=== PATIENT | male | born 1985 | race Two or more races ===

== ENCOUNTER 2020-02-14 02:29 | Inpatient (IN) | payer SELFPAY ==
[~2020-02-14] VITALS: Ht 167.6 cm; Wt 66.7 kg
[2020-02-14] MEDS ORDERED: SODIUM CHLORIDE 0.9% 1,000 ML IV ONE (02:58)
[2020-02-14] MEDS ORDERED: ONDANSETRON ODT 4 MG TAB PO ONE (03:00)
[2020-02-14] MEDS ORDERED: InsuLIN REG 1unit/0.01ml Soln (100units/ml) IV ONE (03:15)
[2020-02-14] MEDS ORDERED: ONDANSETRON HCL 4 MG/2 ML VIAL IV ONE (03:30)
[2020-02-14 03:46] LABS: Basophils # (auto) 0 10 ^3/uL (0-0.2); Basophils % (auto) 0.2 % (0.0-2.0); Eosinophils # (auto) 0 10 ^3/uL (0-0.8); Hemoglobin 16.3 g/dL (13.5-17.5); Lymphocytes # (auto) 0.8 10 ^3/uL (0.4-5.4); Lymphocytes % (auto) 7.8 % (10.0-50.0); Mean Corpuscular Hemoglobin 30.2 pg (28.0-32.0); Mean Corpuscular Hgb Conc. 32.5 g/dL (32.0-36.0); Mean Corpuscular Volume 92.9 fL (80.0-100.0); Monocytes # (auto) 0.5 10 ^3/uL (0-1.3); Monocytes % (auto) 4.5 % (0.0-12.0); Neutrophils # (auto) 8.8 10 ^3/uL (1.6-8.6); Neutrophils % (auto) 87.5 % (37.0-80.0); Platelet Count (auto) 344 10^3/uL (140-450); Red Blood Cells 5.38 10^6/uL (4.5-5.90); White Blood Cell 10.1 10^3/uL (4.4-10.8)
[2020-02-14 03:57] LABS: Alanine Aminotransferase 47 U/L (16-61); Aspartate Aminotransferase 37 U/L (15-37); GFR African American 78 mL/min; GFR Non-African American 65 mL/min
[2020-02-14 04:02] LABS: Glucose 589 mg/dL (74-106)
[2020-02-14 04:04] LABS: INR 1.01 (0.9-1.15); Partial Thromboplastin Time 22.8 sec (23.64-32.05)
[2020-02-14 04:17] LABS: Albumin 4.4 g/dL (3.4-5.0); Alkaline Phosphatase 105 U/L (45-117); Anion Gap 25 (5-15); BUN/Creatinine Ratio 15.7; Blood Urea Nitrogen 21 mg/dL (7-18); Calcium 9.6 mg/dL (8.5-10.1); Carbon Dioxide 11 mmol/L (21-32); Chloride 95 mmol/L (98-107); Magnesium 2.8 mg/dL (1.6-2.6); Potassium 4.6 mmol/L (3.5-5.1); Sodium 131 mmol/L (136-145)
[2020-02-14 04:23] LABS: Urine Bacteria NONE SEEN /hpf (None Seen); Urine Blood Negative /uL (Negative); Urine Specific Gravity 1.028 (1.001-1.035); Urine WBC <1 /hpf (0 - 3)
[2020-02-14] MEDS ORDERED: InsuLIN R (HUMAN) 100 UNITS in SODIUM CHL 0.9% 99 ML IV SCH (04:24)
[2020-02-14] MEDS: SODIUM CHLORIDE 0.9% 2,000 ML IV SCH ×2 (04:25→06:24)
[2020-02-14] MEDS ORDERED: DEXTROSE (50%) 50ML SYRG IV PRN ×3 (04:30→14:15)
[2020-02-14] MEDS ORDERED: SODIUM BICARBONATE 8.4 % INJ 50ML VIAL IV ONE (04:30)
[2020-02-14] MEDS ORDERED: InsuLIN REG 1unit/0.01ml Soln (100units/ml) ONE ×2 (04:44→04:51)
[2020-02-14] MEDS ORDERED: ONDANSETRON HCL 4 MG/2 ML VIAL IV PRN (05:00)
[2020-02-14] MEDS ORDERED: INSULIN LANTUS (GLARGINE) 1 /0.01ml (100units/ml) SC ONE (05:00)
[2020-02-14] MEDS ORDERED: DOCUSATE SOD 100 MG CAP PO PRN (05:00)
[2020-02-14] MEDS ORDERED: ACETAMINOPHEN 325 MG TAB PO PRN (05:00)
[2020-02-14] MEDS: ACCU-CHEK COMFORT CURVE STRIP VI SCH ×10 (05:17→21:36)
[2020-02-14 06:06] LABS: Basophils # (auto) 0 10 ^3/uL (0-0.2); Basophils % (auto) 0.3 % (0.0-2.0); Eosinophils # (auto) 0 10 ^3/uL (0-0.8); Hematocrit 40.5 % (41.0-53.0); Hemoglobin 13.1 g/dL (13.5-17.5); Lymphocytes # (auto) 0.7 10 ^3/uL (0.4-5.4); Mean Corpuscular Hemoglobin 29.2 pg (28.0-32.0); Mean Corpuscular Hgb Conc. 32.4 g/dL (32.0-36.0); Monocytes # (auto) 0.6 10 ^3/uL (0-1.3); Monocytes % (auto) 5.8 % (0.0-12.0); Neutrophils # (auto) 9.7 10 ^3/uL (1.6-8.6); Neutrophils % (auto) 87.9 % (37.0-80.0); Platelet Count (auto) 279 10^3/uL (140-450); Red Cell Distribution Width 13.6 % (11.8-14.3)
[2020-02-14 06:26] LABS: Calcium 7.5 mg/dL (8.5-10.1); Potassium 3.9 mmol/L (3.5-5.1)
[2020-02-14] MEDS: SODIUM CHLORIDE 0.9% 1,000 ML IV SCH ×4 (06:29→17:50)
[2020-02-14] MEDS: InsuLIN R (HUMAN) 100 UNITS in SODIUM CHL 0.9% 99 ML IV SCH ×3 (07:48→12:06)
[2020-02-14] MEDS ORDERED: SODIUM CHLORIDE 0.9% 1,000 ML IV SCH ×3 (08:24→10:24)
[2020-02-14 08:39] LABS: Magnesium 2.3 mg/dL (1.6-2.6); Phosphorus 1.6 mg/dL (2.5-4.90)
[2020-02-14 12:18] LABS: Potassium 3.4 mmol/L (3.5-5.1)
[2020-02-14 12:20] LABS: BUN/Creatinine Ratio 15.5
[2020-02-14] MEDS ORDERED: POTASSIUM CHLORIDE 8 MEQ TAB PO ONE (14:15)
[2020-02-14] MEDS ORDERED: InsuLIN REG 1unit/0.01ml Soln (100units/ml) SC ONE (14:15)
--- NOTE | 2020-02-14 16:50 | NUR ---
Telemetry admit from ER SAMIR DE LA FUENTE admitted to Telemetry unit after SBAR received from Mario KURTZ in ER. Patient is A & O x4, no s/s of distress. Patient oriented to Stacey Gray, primary RN, unit, room, bed, and unit policies regarding patient care and visiting hours. Patient now on continuous telemetry monitoring, tele box # 4 and telemetry reading on arrival to unit is SR at 65. Patient vital signs 116/73, HR 75, RR 16, O2 100% on RA, T 98.4. Patient encouraged to call if they need something. All questions and concerns addressed, patient verbalized understanding. Bed is in lowest, locked position, call light within reach. Will continue to monitor Q1h and PRN.
[2020-02-14] MEDS: InsuLIN REG 1unit/0.01ml Soln (100units/ml) SC SCH ×2 (17:37→21:53)
--- NOTE | 2020-02-14 18:05 | NUR ---
Spoke to Hospitalist, Nathan Doherty Patient reporting 9/10 headache. Orders received, read back, and verified. Will medicate per orders. Patient given an Ice pack to the back of the head for the mean time, patient reports that tylenol did not work for him.
[2020-02-14 19:33] LABS: Calcium 7.2 mg/dL (8.5-10.1); Potassium 3.5 mmol/L (3.5-5.1)
[2020-02-14] MEDS: traMADol HCL 50 MG TAB PO PRN (19:33)
--- NOTE | 2020-02-14 19:50 | NUR ---
open note assumed care of pt. upon entering room pt awake, alert and oriented x4. pt on room air no distress noted or expressed. pt updated on plan of care. bed locked, low and 2x rails up. call light in reach, this nurse to round q1hr and prn. pt report headache, this nurse to medicate per MD and MAR. this nurse to round q1hr and prn. encouraged pt to call as needed
[2020-02-14] MEDS: INSULIN LANTUS (GLARGINE) 1 /0.01ml (100units/ml) SC SCH (21:52)
[2020-02-14 22:00] VITALS: BP 116/72
[2020-02-15 00:14] LABS: BUN/Creatinine Ratio 11.6; Calcium 7.2 mg/dL (8.5-10.1); Potassium 3.1 mmol/L (3.5-5.1)
[2020-02-15 05:00] VITALS: BP 110/76
[2020-02-15 05:47] LABS: Basophils # (auto) 0 10 ^3/uL (0-0.2); Basophils % (auto) 0.3 % (0.0-2.0); Eosinophils # (auto) 0 10 ^3/uL (0-0.8); Eosinophils % (auto) 0.2 % (0.0-7.0); Hematocrit 35.3 % (41.0-53.0); Hemoglobin 11.9 g/dL (13.5-17.5); Lymphocytes # (auto) 1.9 10 ^3/uL (0.4-5.4); Lymphocytes % (auto) 24.5 % (10.0-50.0); Mean Corpuscular Hemoglobin 29.7 pg (28.0-32.0); Mean Corpuscular Hgb Conc. 33.8 g/dL (32.0-36.0); Mean Corpuscular Volume 87.8 fL (80.0-100.0); Monocytes # (auto) 0.7 10 ^3/uL (0-1.3); Neutrophils # (auto) 5.1 10 ^3/uL (1.6-8.6); Nucleated Red Blood Cells % 0.1 %; Platelet Count (auto) 196 10^3/uL (140-450); Red Blood Cells 4.02 10^6/uL (4.5-5.90); Red Cell Distribution Width 13.1 % (11.8-14.3); White Blood Cell 7.7 10^3/uL (4.4-10.8)
[2020-02-15] MEDS: SODIUM CHLORIDE 0.9% 1,000 ML IV SCH ×3 (05:52→11:36)
[2020-02-15 06:01] LABS: Potassium 3.1 mmol/L (3.5-5.1)
[2020-02-15 06:07] LABS: BUN/Creatinine Ratio 13.6; Calcium 7.2 mg/dL (8.5-10.1)
[2020-02-15] MEDS: ACCU-CHEK COMFORT CURVE STRIP VI SCH ×4 (06:19→22:07)
[2020-02-15] MEDS: InsuLIN REG 1unit/0.01ml Soln (100units/ml) SC SCH ×4 (06:42→22:11)
[2020-02-15 09:00] VITALS: BP 111/75
[2020-02-15] MEDS: traMADol HCL 50 MG TAB PO PRN ×2 (09:09→20:21)
--- NOTE | 2020-02-15 09:09 | NUR ---
MEDICATED WITH NORCO 05/30 FOR HEADACHE.
[2020-02-15] MEDS: INSULIN LANTUS (GLARGINE) 1 /0.01ml (100units/ml) SC SCH (09:45)
[2020-02-15] MEDS ORDERED: INSULIN LANTUS (GLARGINE) 1 /0.01ml (100units/ml) SC SCH ×2 (10:00→22:00)
[2020-02-15 13:00] VITALS: BP 112/79
[2020-02-15] MEDS ORDERED: POTASSIUM CHL 20 Meq TABLET PO ONE (13:15)
[2020-02-15 17:00] VITALS: BP 110/57
--- NOTE | 2020-02-15 20:03 | NUR ---
Opening Shift Note Assumed care of patient, awake and alert. No S/S of distress/SOB. Patient complains of 8/10 headache. POC discussed and questions answered. Bed is locked in lowest position with side rails up x2 for safety, call light is within reach and patient encouraged to call for assistance as needed. Will continue to monitor for changes Q1hr and PRN.
--- NOTE | 2020-02-15 20:22 | NUR ---
Patient complains of 8/10 headache, medicated with Ultram. Will continue to monitor.
[2020-02-15] MEDS ORDERED: INSLISPI SC (20:32)
[2020-02-15 22:52] VITALS: BP 116/77
[2020-02-16] MEDS: SODIUM CHLORIDE 0.9% 1,000 ML IV SCH (01:14)
[2020-02-16 05:11] VITALS: BP 123/83
[2020-02-16] MEDS: ACCU-CHEK COMFORT CURVE STRIP VI SCH ×2 (06:17→11:32)
[2020-02-16 06:21] LABS: Calcium 7.9 mg/dL (8.5-10.1); Potassium 3.2 mmol/L (3.5-5.1)
[2020-02-16 06:25] LABS: BUN/Creatinine Ratio 9.6
[2020-02-16] MEDS: InsuLIN REG 1unit/0.01ml Soln (100units/ml) SC SCH ×2 (06:26→11:40)
--- NOTE | 2020-02-16 07:35 | NUR ---
OPENING SHIFT NOTE: PATIENT RESTING IN BED ASLEEP EASILY AWOKEN. A/OX4 RESPIRATIONS EVEN AND UNLABORED. PATIENT UPDATED ON PLAN OF CARE, CALL LIGHT PLACED WITHIN REACH. FALL PRECAUTIONS IN PLACE. WILL CONTINUE TO MONITOR.
[2020-02-16 09:00] VITALS: BP 104/72
[2020-02-16] MEDS ORDERED: POTASSIUM CHL 20 Meq TABLET PO ONE (10:30)
--- NOTE | 2020-02-16 12:19 | NUR ---
PATIENT GIVEN ALL EDUCATION MATERIALS REGARDING FINDING A PRIMARY CARE DOCTOR AND WHERE TO GO UPON DISCHARGE FOR HEALTHCARE NEEDS. CASE MANAGEMENT ASSISTED WITH [employer] AND PATIENT MADE AWARE OF PENDING APPROVAL STATUS.
[2020-02-16] MEDS ORDERED: ATOR20TA PO (12:43)
[2020-02-16 13:00] VITALS: BP 113/80
--- NOTE | 2020-02-16 14:04 | NUR ---
DISCHARGE: PATIENT DISCHARGED WITH ALL BELONGINGS, ALL EDUCATION MATERIALS GIVEN AND REVIEWED WITH PATIENT. IV REMOVED MANUAL PRESSURE APPLIED, TELE BOX RETURNED TO CARDIO UNIT. PATIENT AMBULATED OUT TO PRIVATE AUTO WITHOUT INCIDENCE.
== END 2020-02-16 14:00 | disposition home or self-care (01) | DRG 637 ==
LOC: EDSEX 02:33 → ER 02:33 → OVERFLOW 02:34 → TELE-EAST 16:50
PROVIDERS: ADMIT Hospitalist; ATTEND Internal Medicine
DX: E11.10 Type 2 diabetes mellitus with ketoacidosis without coma (principal); N17.0 Acute kidney failure with tubular necrosis; R65.10 Systemic inflammatory response syndrome (SIRS) of non-infectious origin without acute organ dysfunction; E11.22 Type 2 diabetes mellitus with diabetic chronic kidney disease; E78.5 Hyperlipidemia, unspecified; E86.0 Dehydration; E87.6 Hypokalemia; N18.9 Chronic kidney disease, unspecified; Z91.19 Patient's noncompliance with other medical treatment and regimen; Z79.4 Long term (current) use of insulin
CPT/HCPCS: 36415; 36600; 71045; 80048; 80053; 80061; 81001; 82010; 82805; 82962; 83036; 83735; 83880; 83930; 84100; 84443; 84484; 85025; 85610; 85730; 93005; G0378; J1815; J2405